=== PATIENT | male | born 1935 | race Asian ===

== ENCOUNTER 2018-01-26 19:45 | Inpatient (IN) | payer MEDICAID ==
--- NOTE | 2018-01-26 21:19 | ED Physician Chart ---
ED Chief Complaint/HPI - Patient Information Date Seen:: 01/26/18 Time Seen:: 21:09 Chief Complaint:: Agitation and leg edema History of Present Illness:: 83 yo male with history of hypertension, multiple lacunar strokes, dementia and psychosis, was brought from [facility]F to ER for evaluation of increased agitation and combative behavior after he missed doses of Aricept 10mg qhs and Seroquel 100mg qhs for 3 days. Today, patient was evaluated by his neurologist who recommended the patient to evaluated at an ER. In addition, patient had bilateral lower extremities swelling for 2 weeks. At ER, patient became agitated, urinated in the exam room and noncooperative with medical evaluation. Allergies:: Allergies Allergy/AdvReac Type Severity Reaction Status Date / Time No Known Allergies Allergy Verified 01/26/18 20:09 Vitals:: Vital Signs - 8 hr 01/26/18 20:00 Temp 97.6 F HR 72 RR 18 BP 165/106 O2 Sat % 95 ED Review of Systems - Review of Systems General/Constitutional: No fever, No chills Skin: Skin lesions Head: Headache, Other (ecchymosis) Eyes: No pain ENT: No nasal drainage Neck: No neck pain Cardio Vascular: No chest pain Pulmonary: No SOB GI: No nausea, No vomiting Musculoskeletal: Bone or joint pain Psychiatric: Prior psych history Neurological: No focal symptoms ED Past Medical History - Past Medical History Past Medical History: HTN, CVA/TIA, Dementia Social History: Non Smoker, No Alcohol, No Drug Use Surgical History: None Psychiatricy History: Other (Psychosis) Family Medical History - Family Member Mother History Unknown: Yes ED Physical Exam - Physical Examination General/Constitutional: Awake Other Head comments:: Right periorbital ecchymosis Eyes: PERRL, EOMI Other Skin comments:: Right periorbital ecchymosis ENMT: Nasal exam nl Neck: No nuchal rigidity Respiratory: Clear to Auscultation, No Wheeze/Rhonchi/Rales Cardio Vascular: No murmur, gallop, rubs, NL S1 S2 Other Cardio Vascular comments:: Irregular rate and rhythm GI: No tenderness/rebounding/guarding Other Extremities comments:: 2+ edema bilateral lower extremities Neuro/Psych: Normal motor strength Other Neuro/Psych comments:: oriented to self only ED Labs/Radiology/EKG Results - Lab Results Results: Laboratory Last Values WBC 5.6 Th/cmm (4.8-10.8) 01/27/18 04:30 RBC 3.50 Mil/cmm (3.80-5.80) L 01/27/18 04:30 Hgb 11.0 gm/dL (12-16) L 01/27/18 04:30 Hct 33.1 % (41.0-60) L 01/27/18 04:30 MCV 94.7 fl (80-99) 01/27/18 04:30 MCH 31.4 pg (27.0-31.0) H 01/27/18 04:30 MCHC Differential 33.1 pg (28.0-36.0) 01/27/18 04:30 RDW 14.9 % (11.5-20.0) 01/27/18 04:30 Plt Count 142 Th/cmm (150-400) L 01/27/18 04:30 MPV 8.2 fl 01/27/18 04:30 Neutrophils % 72.7 % (40.0-80.0) 01/27/18 04:30 Lymphocytes % 15.7 % (20.0-50.0) L 01/27/18 04:30 Monocytes % 10.7 % (2.0-10.0) H 01/27/18 04:30 Eosinophils % 0.4 % (0.0-5.0) 01/27/18 04:30 Basophils % 0.5 % (0.0-2.0) 01/27/18 04:30 PT 11.6 SECONDS (9.5-11.5) H 01/26/18 21:30 INR 1.13 (0.5-1.4) 01/26/18 21:30 PTT (Actin FS) 31.2 SECONDS (26.0-38.0) 01/26/18 21:30 Sodium 139 mEq/L (136-145) 01/27/18 04:30 Potassium 4.3 mEq/L (3.5-5.1) 01/27/18 04:30 Chloride 105 mEq/L (98-107) 01/27/18 04:30 Carbon Dioxide 23.6 mEq/L (21.0-31.0) 01/27/18 04:30 Anion Gap 14.7 (7.0-16.0) 01/27/18 04:30 BUN 30 mg/dL (7-25) H 01/27/18 04:30 Creatinine 1.1 mg/dL (0.7-1.3) 01/27/18 04:30 Est GFR ( Amer) TNP 01/27/18 04:30 Est GFR (Non-Af Amer) TNP 01/27/18 04:30 BUN/Creatinine Ratio 27.3 01/27/18 04:30 Glucose 156 mg/dL (70-105) H 01/27/18 04:30 Calcium 8.9 mg/dL (8.6-10.3) 01/27/18 04:30 Total Bilirubin 0.9 mg/dL (0.3-1.0) 01/27/18 04:30 AST 69 U/L (13-39) H 01/27/18 04:30 ALT 50 U/L (7-52) 01/27/18 04:30 Alkaline Phosphatase 107 U/L (34-104) H 01/27/18 04:30 Creatine Kinase 222 U/L (30-223) 01/27/18 04:30 Troponin I 0.51 ng/mL (0.01-0.05) H* 01/27/18 04:30 B-Natriuretic Peptide 1420.0 pg/mL (5.0-100.0) H 01/26/18 21:30 Total Protein 6.7 gm/dL (6.0-8.3) 01/27/18 04:30 Albumin 3.2 gm/dL (4.2-5.5) L 01/27/18 04:30 Globulin 3.5 gm/dL 01/27/18 04:30 Albumin/Globulin Ratio 0.9 (1.0-1.8) L 01/27/18 04:30 - Radiology Results Results: CXR: cardiomegaly, no focal consolidation - EKG Interpretations EKG Time:: 21:39 Rate & Rhythm: 86 bpm, atrial fibrillation [place]: LVH Intervals: Prolonged QT interval Comments:: Abnormal EKG ED Assessment - Assessment General Assessment: 1. Congestive heart failure 2. Atrial fibrillation 3. Hypertension 4. Anemia of chronic disease 5. Psychosis 6. Dementia Assessment/Comments:: CBC, CMP, Trop, BNP, UA CT head wo contrast CT face wo contrast CXR, EKG Haldol 5mg IM Benadryl 25mg IM Ativan 1mg IM Lasix 40mg IV Admit to telemetry ED Septic Shock - . Is Septic Shock (SBP<90, OR Lactate>4 mmol\L) present?: No - <6hrs of presentation: Vital Signs: Vital Signs - 8 hr 01/26/18 20:00 Temp 97.6 F HR 72 RR 18 BP 165/106 O2 Sat % 95 ED Reassessment (Disposition) - Reassessment Reassessment Condition:: Improved - Patient Disposition Discharge/Transfer:: Acute Care w/in this hosp Admitting Medical Physician:: Patrick Lizarraga
[2018-01-26 21:43] LABS: % BASOPHILS 0.4 % (0.0-2.0); % EOSINOPHILS 0.8 % (0.0-5.0); % MONOCYTES 12.6 % (2.0-10.0); % NEUTROPHILS 71.2 % (40.0-80.0); HEMATOCRIT 33.5 % (41.0-60); HEMOGLOBIN 10.8 gm/dL (12-16); LYMPHOCYTE ABSOLUTE 0.8 Th/cmm (1.5-3.0); MEAN CELL VOLUME 95.8 fl (80-99); MEAN CORPUSCULAR HEMOGLOBIN 30.9 pg (27.0-31.0); MEAN CORPUSCULAR HGB CONC 32.2 pg (28.0-36.0); MONOCYTE ABSOLUTE 0.7 Th/cmm (0.3-1.0); NEUTROPHILE ABSOLUTE 4.1 Th/cmm (1.8-8.0); PLATELET COUNT 157 Th/cmm (150-400); WHITE BLOOD COUNT 5.6 Th/cmm (4.8-10.8)
[2018-01-26 21:56] LABS: INR 1.13 (0.5-1.4); PROTHROMBIN TIME (TEST) 11.6 SECONDS (9.5-11.5)
[2018-01-26 21:58] LABS: ALB/GLOB RATIO 0.9 (1.0-1.8); ALBUMIN 3.2 gm/dL (4.2-5.5); ALKALINE PHOSPHATASE 103 U/L (34-104); ANION GAP 14.1 (7.0-16.0); BUN - UREA NITROGEN 28 mg/dL (7-25); CALCIUM SERUM 8.9 mg/dL (8.6-10.3); CARBON DIOXIDE 23.8 mEq/L (21.0-31.0); CHLORIDE 103 mEq/L (98-107); CREATININE - SERUM 1.1 mg/dL (0.7-1.3); GLUCOSE 169 mg/dL (70-105); POTASSIUM SERUM 3.9 mEq/L (3.5-5.1); SGOT 59 U/L (13-39); SGPT/ALT 44 U/L (7-52); SODIUM SERUM 137 mEq/L (136-145); TOTAL PROTEIN,SERUM 6.8 gm/dL (6.0-8.3)
[2018-01-26] MEDS ORDERED: Haloperidol Lactate 5 mg/mL 1mL Vial IM STA (23:15)
[2018-01-26] MEDS ORDERED: Haloperidol Lactate 5 mg/mL 1mL Vial ONE (23:16)
[2018-01-27] MEDS ORDERED: Albuterol Nebulizer 2.5mg/3mL HHN PRN (00:42)
[2018-01-27] MEDS ORDERED: Sodium Chloride 0.9% 1,000 ML IV SCH ×2 (00:43→10:15)
[2018-01-27 05:22] LABS: % BASOPHILS 0.5 % (0.0-2.0); % EOSINOPHILS 0.4 % (0.0-5.0); % LYMPHOCYTES 15.7 % (20.0-50.0); % MONOCYTES 10.7 % (2.0-10.0); % NEUTROPHILS 72.7 % (40.0-80.0); HEMATOCRIT 33.1 % (41.0-60); LYMPHOCYTE ABSOLUTE 0.9 Th/cmm (1.5-3.0); MEAN CELL VOLUME 94.7 fl (80-99); MEAN CORPUSCULAR HEMOGLOBIN 31.4 pg (27.0-31.0); MEAN CORPUSCULAR HGB CONC 33.1 pg (28.0-36.0); MEAN PLATELET VOLUME 8.2 fl; MONOCYTE ABSOLUTE 0.6 Th/cmm (0.3-1.0); NEUTROPHILE ABSOLUTE 4.1 Th/cmm (1.8-8.0); PLATELET COUNT 142 Th/cmm (150-400); RED CELL DISTRIBUTION WIDTH 14.9 % (11.5-20.0); WHITE BLOOD COUNT 5.6 Th/cmm (4.8-10.8)
[2018-01-27 07:25] LABS: ALB/GLOB RATIO 0.9 (1.0-1.8); ALBUMIN 3.2 gm/dL (4.2-5.5); ALKALINE PHOSPHATASE 107 U/L (34-104); ANION GAP 14.7 (7.0-16.0); BILIRUBIN,TOTAL 0.9 mg/dL (0.3-1.0); BUN - UREA NITROGEN 30 mg/dL (7-25); CALCIUM SERUM 8.9 mg/dL (8.6-10.3); CARBON DIOXIDE 23.6 mEq/L (21.0-31.0); CHLORIDE 105 mEq/L (98-107); CREATININE - SERUM 1.1 mg/dL (0.7-1.3); CREATININE KINASE 222 U/L (30-223); GLUCOSE 156 mg/dL (70-105); POTASSIUM SERUM 4.3 mEq/L (3.5-5.1); SGOT 69 U/L (13-39); SGPT/ALT 50 U/L (7-52); SODIUM SERUM 139 mEq/L (136-145); TOTAL PROTEIN,SERUM 6.7 gm/dL (6.0-8.3)
[2018-01-27 07:48] VITALS: BP 136/75
--- NOTE | 2018-01-27 08:36 | Diagnostic Imaging Report ---
CHEST X-RAY: AP view INDICATION: Shortness of breath COMPARISON: None FINDINGS: There is accentuation of the interstitial lung markings with slight prominence of the left hilar region. Cardiomegaly is noted. Atherosclerosis is noted. No effusions. Degenerative changes of the spine are noted. IMPRESSION: Accentuation of the interstitial lung markings. A marginal degree of congestion cannot be excluded. Correlate clinically. Slight prominence of the left hilar region. Findings may be due to superimposition of vascular structures, however, infiltrate or underlying mass lesion cannot be completely excluded. When clinically feasible short-term follow-up CT chest, preferably with IV contrast is recommended. Cardiomegaly and atherosclerotic vascular disease.
--- NOTE | 2018-01-27 09:24 | Diagnostic Imaging Report ---
Head CT without intravenous contrast Indication: Trauma Comparison: CT facial bones the same day Technique: Axial images were obtained from the vertex to the skull base without IV contrast. Coronal reconstructions were made. Total DLP: 646, CTDI34 FINDINGS: Images of the brain obtained without contrast demonstrate no evidence of an acute hemorrhage. Atrophy is noted. Areas of encephalomalacia are seen involving the bilateral frontal and parietal lobe regions. Moderate white matter disease is noted. The ventricles and basal cisterns are patent. No mass effect or midline shift. Heavy atherosclerosis is noted. There are pockets small pocket of air along the left cavernous sinus region and left orbital vein regions. No skull fracture or focal soft tissue swelling. There is mucosal thickening of the paranasal sinuses. IMPRESSION: No evidence of an acute intracranial hemorrhage. Areas of encephalomalacia involving the bilateral frontoparietal regions likely sequela of old infarcts. Atrophy. Moderate supratentorial white matter disease which is nonspecific and may be due to chronic microvessel ischemia.. Incidentally noted are small pockets of gas within the left cavernous sinus and left orbital vein regions. Findings may have been related to venous access. Clinical correlation is needed. Diffuse atherosclerosis.
--- NOTE | 2018-01-27 09:27 | Diagnostic Imaging Report ---
CT maxillofacial bones without IV contrast History: Trauma Comparison: CT head the same day Technique: Axial images of the maxillofacial bones were obtained without IV contrast. Multiplanar reconstructions were made. Total DLP 316, CTD I 17.5 Findings: The bilateral orbital floors are intact. Small pockets of gas are seen along the left orbital vein left cavernous sinus region. The globes and intraconal compartments are intact. There is generalized mucosal thickening of the paranasal sinuses. No air-fluid levels identified. No focal soft tissue swelling. The bilateral zygomatic arches are preserved. Small pocket of gas is seen along the right nasal lacrimal region. There is evidence of previous bilateral sinus surgery. The bilateral TMJ joints are preserved. Small ossicle is seen along the left TMJ joint space region. No mandibular fracture is identified. IMPRESSION: No evidence of an acute fracture. Mild sinus disease with evidence of previous bilateral sinus surgery. No air-fluid levels. Small pockets of gas seen along left orbital region and left cavernous sinus region possibly related recent IV access procedure, correlate clinically.
--- NOTE | 2018-01-27 10:17 | History and Physical ---
History of Present Illness - HPI Chief Complaint: Increased in agitation HPI: Patient was send to er for evaluation of increased in agitation. During ER evaluation was found troponin high and BNP high. Due to this he was hospitalized. Vital Signs: Last Vital Signs Temp 98.4 F 01/27/18 06:00 Pulse 76 01/27/18 06:00 Resp 17 01/27/18 06:00 BP 136/75 01/27/18 08:32 Pulse Ox 97 01/27/18 06:00 Past Medical History Cardiovascular: Report: AFIB, CAD, CHF, HTN Pulmonary: Report: No Pertinent Hx CLASS C DRIVER: Report: CVA, Dementia, TIA, Other (Multiple lacunar infarcts) GI: Report: No Pertinent Hx Psych: Report: Schizophrenia Musculoskeletal: Report: Weakness Rheumatologic: Report: No pertinent Hx Infectious Disease: Report: No Pertinent Hx Renal/: Report: No Pertinent Hx Endocrine: Report: No Pertinent Hx Dermatology: Report: No Pertinent Hx - Past Surgical History Past Surgical History: No pertinent Hx Family Medical History - Family Member Mother History Unknown: Yes Social History Smoke: No Alcohol: None Drugs: None Lives: With Family Domestic Violence: Negative - Medications Home Medications: Home Medication Medication Instructions Recorded Type Atorvastatin Calcium [Lipitor] 10 mg PO HS 01/26/18 History Docusate Sodium [Colace] 100 mg PO BID 01/26/18 History Donepezil Hcl [Aricept] 10 mg PO DAILY 01/26/18 History Furosemide 20 mg PO DAILY 01/26/18 History Multivitamin [Multivitamins] 1 cap PO DAILY 01/26/18 History QUEtiapine Fumarate [SEROquel] 100 mg PO DAILY 01/26/18 History Rivaroxaban [Xarelto] 15 mg PO DAILY 01/26/18 History - Allergies Allergies/Adverse Reactions: Allergies Allergy/AdvReac Type Severity Reaction Status Date / Time No Known Allergies Allergy Verified 01/26/18 20:09 Review of Systems - Review of Systems Constitutional: Report: Weakness Eyes: Report: No Significant ENT: Report: No Significant Respiratory: Report: No Significant Cardiovascular: Report: Palpitations Gastrointestinal: Report: No Significant Genitourinary: Report: No Significant Musculoskeletal: Report: No Significant Skin: Report: No Significant Neurological: Report: Weakness Physical Exam - Physical Exam HEENT: Report: Ears Nose Throat within normal limits Neck: Report: Within normal limits Cardiovascular Systems: Report: Irregular rhythm was noted Respiratory: Report: Breath Sounds are within normal limits Abdomen: Report: Non-tender to palpation Back: Report: Inspection of back is within normal limits. Extremities: Report: Non-tender to palpation. Skin: Report: Color of skin is within normal limits, Warm Neuro/Psych: Report: Disoriented to name time or place, Other (Patient agitated at moments) - Lab Results All Lab Results last 24 hours: Laboratory Results - last 24 hr 01/26/18 01/26/18 01/26/18 21:30 21:30 21:30 WBC 5.6 RBC 3.50 L Hgb 10.8 L Hct 33.5 L MCV 95.8 MCH 30.9 MCHC Differential 32.2 RDW 15.0 Plt Count 157 MPV 8.0 Neutrophils % 71.2 Lymphocytes % 15.0 L Monocytes % 12.6 H Eosinophils % 0.8 Basophils % 0.4 PT 11.6 H INR 1.13 PTT (Actin FS) 31.2 Sodium 137 Potassium 3.9 Chloride 103 Carbon Dioxide 23.8 Anion Gap 14.1 BUN 28 H Creatinine 1.1 Est GFR ( Amer) TNP Est GFR (Non-Af Amer) TNP BUN/Creatinine Ratio 25.5 Glucose 169 H Calcium 8.9 Total Bilirubin 1.0 AST 59 H ALT 44 Alkaline Phosphatase 103 Creatine Kinase Troponin I B-Natriuretic Peptide Total Protein 6.8 Albumin 3.2 L Globulin 3.6 Albumin/Globulin Ratio 0.9 L 01/26/18 01/26/18 01/27/18 21:30 21:30 04:30 WBC 5.6 RBC 3.50 L Hgb 11.0 L Hct 33.1 L MCV 94.7 MCH 31.4 H MCHC Differential 33.1 RDW 14.9 Plt Count 142 L MPV 8.2 Neutrophils % 72.7 Lymphocytes % 15.7 L Monocytes % 10.7 H Eosinophils % 0.4 Basophils % 0.5 PT INR PTT (Actin FS) Sodium Potassium Chloride Carbon Dioxide Anion Gap BUN Creatinine Est GFR ( Amer) Est GFR (Non-Af Amer) BUN/Creatinine Ratio Glucose Calcium Total Bilirubin AST ALT Alkaline Phosphatase Creatine Kinase Troponin I 0.50 H* B-Natriuretic Peptide 1420.0 H Total Protein Albumin Globulin Albumin/Globulin Ratio 01/27/18 01/27/18 04:30 04:30 WBC RBC Hgb Hct MCV MCH MCHC Differential RDW Plt Count MPV Neutrophils % Lymphocytes % Monocytes % Eosinophils % Basophils % PT INR PTT (Actin FS) Sodium 139 Potassium 4.3 Chloride 105 Carbon Dioxide 23.6 Anion Gap 14.7 BUN 30 H Creatinine 1.1 Est GFR ( Amer) TNP Est GFR (Non-Af Amer) TNP BUN/Creatinine Ratio 27.3 Glucose 156 H Calcium 8.9 Total Bilirubin 0.9 AST 69 H ALT 50 Alkaline Phosphatase 107 H Creatine Kinase 222 Troponin I 0.51 H* B-Natriuretic Peptide Total Protein 6.7 Albumin 3.2 L Globulin 3.5 Albumin/Globulin Ratio 0.9 L - Assessment Assessment: Patient is awake, confused, agitated at moment, non cooperative. Dx: CHF, Increased in troponins, A-fib, HTN, Dementia, Psychosis, S/P multiple lacunar infarcts. - Plan Plan: Patient in IV NS, IV Lasix, Xarelto, continue with home meds. Consult with Cardio and Psychiatry requested. Will continue to monitor.
[2018-01-27] MEDS ORDERED: Metoprolol tartrate 1 mg/ml 5mL Amp IV ONE (13:10)
[2018-01-27] MEDS ORDERED: Atorvastatin Calcium 10 MG TAB PO SCH (21:00)
[2018-01-27] MEDS ORDERED: Diltiazem 30 mg Tab PO SCH (21:00)
--- NOTE | 2018-01-28 04:56 | Consultation ---
DATE OF CONSULTATION: 01/27/[address] Lizarraga. HISTORY OF PRESENT ILLNESS: This is an 83-year-old oriental male patient who was brought to the Emergency Room due to agitation. Upon evaluation, the patient had slightly elevated troponin level with BNP level of 1450 and hence, the patient is admitted. No history of PND or orthopnea. PAST MEDICAL HISTORY: Congestive heart failure, atrial fibrillation, angina, dementia, psychosis, and multiple CVAs. FAMILY HISTORY: Unremarkable. SOCIAL HISTORY: No history of smoking, alcohol abuse. ALLERGIES: None. PHYSICAL EXAMINATION: VITAL SIGNS: Blood pressure 130/80, pulse 110 and irregular, and respirations 28. HEAD: Normocephalic. No lumps or bumps. EYES: Pupils equal, reactive to light. Fundi show AV nicking, sclerae white, conjunctivae pink. NECK: Carotid 2+. Normal upstroke. JVD 10 cm above sternal angle. Thyroid not palpable. Lymph nodes not palpable. CHEST: Shows increased AP diameter. No kyphosis, scoliosis. LUNGS: Bilateral rales. Decreased breath sounds both the bases. HEART: PMI sixth intercostal space with lateral to midclavicular line. S1, S2, S3, S4. S1 irregular. Systolic murmur, grade 2/6, lower left sternal border without radiation. ABDOMEN: Soft. Liver, spleen not palpable. No organomegaly. Bowel sounds active. NEUROLOGIC: The patient has no focal neurological deficit. EXTREMITIES: Peripheral pulses 2+. No pedal edema. CLINICAL IMPRESSION: Congestive heart failure, diastolic dysfunction, acute atrial fibrillation with uncontrolled ventricular response, angina, [id number] myocardial infarction, dementia, psychosis, and old cerebrovascular accident. PLAN: The patient to continue on Xarelto, give Lasix, Coreg, echocardiogram, and monitor the patient closely. JOB# [id number]
--- NOTE | 2018-02-01 09:25 | Discharge Summary ---
General Discharge Summary - Discharge Summary Disposition: TRANSFER TO ACUTE HOSP Home Medications: Home Medication Medication Instructions Recorded Type Atorvastatin Calcium [Lipitor] 10 mg PO HS 01/26/18 History Docusate Sodium [Colace] 100 mg PO BID 01/26/18 History Donepezil Hcl [Aricept] 10 mg PO DAILY 01/26/18 History Furosemide 20 mg PO DAILY 01/26/18 History Multivitamin [Multivitamins] 1 cap PO DAILY 01/26/18 History QUEtiapine Fumarate [SEROquel] 100 mg PO DAILY 01/26/18 History Rivaroxaban [Xarelto] 15 mg PO DAILY 01/26/18 History Albuterol Nebulizer 2.5mg/3mL 2.5 mg HHN Q6H PRN each 01/27/18 Rx [Albuterol Neb UD*] Atorvastatin Calcium [Lipitor] 10 mg PO HS tab 01/27/18 Rx Diltiazem [Cardizem*] 60 mg PO Q8HR tab 01/27/18 Rx Docusate Sodium [Colace] 100 mg PO BID cap 01/27/18 Rx Donepezil Hcl [Aricept] 10 mg PO DAILY tab 01/27/18 Rx Furosemide [Lasix] 40 mg IVP BID vial 01/27/18 Rx Lorazepam [Ativan] 0.5 mg IVP Q6H PRN vial 01/27/18 Rx QUEtiapine Fumarate [SEROquel] 100 mg PO DAILY tab 01/27/18 Rx Rivaroxaban [Xarelto] 15 mg PO DAILY@1300 tab 01/27/18 Rx Consults and Follow-Up: ABENA HENAO [Other] not on staff,PCP is [Primary Care Provider] - Instructions: Edema, Cardiac Biomarkers, Cardiac-Specific Troponin I and T, Psychosis, Heart Failure, [id number]
== END 2018-01-27 21:40 | disposition short-term general hospital (02) | DRG 190 ==
LOC: ER 19:45 → TELE 01-27 00:45
PROVIDERS: ADMIT General Practice; ATTEND General Practice
DX: I21.4 Non-ST elevation (NSTEMI) myocardial infarction (principal); I50.31 Acute diastolic (congestive) heart failure; I48.91 Unspecified atrial fibrillation; D63.8 Anemia in other chronic diseases classified elsewhere; F03.90 Unspecified dementia, unspecified severity, without behavioral disturbance, psychotic disturbance, mood disturbance, and anxiety; I11.0 Hypertensive heart disease with heart failure; F29 Unspecified psychosis not due to a substance or known physiological condition; I25.119 Atherosclerotic heart disease of native coronary artery with unspecified angina pectoris; Z86.73 Personal history of transient ischemic attack (TIA), and cerebral infarction without residual deficits; Z79.899 Other long term (current) drug therapy
CPT/HCPCS: 36415-UA; 70450-TC; 70486-TC; 71045-TC; 80053-TC; 82550-TC; 82553; 83880-TC; 84484-TC; 85025-TC; 85610-TC; 90799; 93005; 94760; 96374; 96375; J1200; J1630; J1940; J2060; J7030